=== PATIENT | female | born 1965 | race Caucasian/White ===

== ENCOUNTER → 2019-08-18 | Day surgery (SDC) | payer BC ==
--- NOTE | 2019-08-18 11:55 | RAD REPORT ---
EXAM DESCRIPTION: Ultrasound-guided left breast cyst aspiration CLINICAL HISTORY: Breast mass versus cyst N63.0 COMPARISON: Follow Up Breast Axilla Comp dated 08/10/2019 FINDINGS: Informed consent was obtained and time-out was performed. The patient's left breast was prepped and draped in the usual sterile fashion. 1% lidocaine was used for local anesthetic purposes. Utilizing aseptic technique and ultrasound guidance, an FNA needle was used to access 7 mm hypoechoic left breast lesion in the area of interest. Aspiration was performed yielding 1-2 mL of dark fluid. The cyst was seen the collapse completely. All collected material was sent for cytology. Patient tolerated procedure well. IMPRESSION: Successful ultrasound guided left breast cyst aspiration.
== END ==
LOC: DS 09:44
PROVIDERS: ATTEND Specialist
DX: N63.0 Unspecified lump in unspecified breast (principal)
CPT/HCPCS: 19000; 88161

== ENCOUNTER 2021-08-22 18:53 | Observation (INO) | payer BC ==
[2021-08-22] MEDS ORDERED: NA CHLORIDE 0.9% 1,000 ML ONE (19:53)
[2021-08-22] MEDS ORDERED: ONDANSETRON 4 MG/2 ML VIAL ONE (19:53)
[2021-08-22] MEDS ORDERED: MORPHINE 4 MG/ML SYR ONE ×2 (19:53→23:29)
[2021-08-22 20:38] LABS: Hematocrit 37.1 % (36.0-45.0); Lymphocytes % 16.3 % (15.3-44.8); MPV 7.5 fL (7.6-11.3); RBC Red Blood Cell Count 4.41 M/uL (3.86-4.86)
--- NOTE | 2021-08-22 21:05 | RAD REPORT ---
EXAM DESCRIPTION: US - Abdomen Exam Limited - 08/22/2021 8:43 pm CLINICAL HISTORY: ABD PAIN COMPARISON: No comparisons FINDINGS: No gallstones, sludge or other abnormalities within the gallbladder lumen. There is no wal l thickening or pericholecystic fluid. No common duct stone or biliary tree dilatation identified. IMPRESSION: Normal gallbladder and biliary tree ultrasound.
[2021-08-22 21:16] LABS: SARS-COV-2 RT PCR NEGATIVE (NEGATIVE)
[2021-08-22 21:31] LABS: ALT/SGPT 17 U/L (12-78); AST/SGOT 11 U/L (15-37); Albumin 3.5 g/dL (3.4-5.0); Alkaline Phosphatase 93 U/L (45-117); BUN Blood Urea Nitrogen 12 mg/dL (7-18); Bicarbonate 26 mmol/L (21-32); Bilirubin Direct < 0.1 mg/dL (0-0.2); Bilirubin Total 0.3 mg/dL (0.2-1.0); Glucose Level 111 mg/dL (74-106); Lipase 106 U/L (73-393); Potassium 3.6 mmol/L (3.5-5.1); Sodium Level 138 mmol/L (136-145)
--- NOTE | 2021-08-22 23:22 | ER ---
Nurse's Notes [facility] Name: Elvi Clark Age: 55 yrs Sex: Female : 1965 Arrival Date: 08/22/2021 Time: 18:54 Bed 17 Private MD: Diagnosis: Acute cholecystitis;Vomiting, unspecified Presentation: 08/22 19:33 Chief complaint: Patient states: pt presents with right upper quadrant pain that jh5 started yesterday afternoon, worsens after eating and pt endorses vomiting x5 times today. denies diarrhea. Coronavirus screen: Vaccine status: Patient reports receiving the 2nd dose of the covid vaccine. Client denies travel out of the [place] in the last 14 days. At this time, the client does not indicate any symptoms associated with coronavirus-19. Ebola Screen: Patient negative for fever greater than or equal to 101.5 degrees Fahrenheit, and additional compatible Ebola Virus Disease symptoms Patient denies exposure to infectious person. Patient denies travel to an Ebola-affected area in the 21 days before illness onset. Initial Sepsis Screen: Does the patient meet any 2 criteria? No. Patient's initial sepsis screen is negative. Does the patient have a suspected source of infection? No. Patient's initial sepsis screen is negative. Risk Assessment: Do you want to hurt yourself or someone else? Patient reports no desire to harm self or others. Onset of symptoms was August 21, 2021. 19:33 Method Of Arrival: Ambulatory [facility] 19:33 Acuity: MEENA 3 jh5 Triage Assessment: 19:36 General: Appears uncomfortable, slender, well groomed, well developed, well nourished, [facility] Behavior is calm, cooperative, appropriate for age. Pain: Complains of pain in abdomen. GI: Reports upper abdominal pain, nausea, vomiting. Historical: - Allergies: 19:36 No Known Allergies; 5 - Home Meds: 19:36 Prozac 10 mg oral cap [Active]; Crestor 5 mg oral tab [Active]; Singulair 4 mg Oral jh5 grpk [Active]; - PMHx: 08/23 12:14 Depressive disorder; jl7 - Immunization history:: Adult Immunizations up to date. - Social history:: Smoking status: Patient reports the use of cigarette tobacco products, smokes one-half pack cigarettes per day. - Family history:: not pertinent. - Hospitalizations: : No recent hospitalization is reported. Screenin/08 19:41 Abuse screen: Denies threats or abuse. Nutritional screening: No deficits noted. lg3 Tuberculosis screening: No symptoms or risk factors identified. Fall Risk None identified. Assessment: 19:41 General: Appears in no apparent distress. uncomfortable, Behavior is calm, cooperative. lg3 Pain: Complains of pain in abdomen Pain currently is 10 out of 10 on a pain scale. Neuro: Level of Consciousness is awake, alert, obeys commands, Oriented to person, place, time, situation, Gait is steady. Cardiovascular: Capillary refill < 3 seconds JVD is absent Patient's skin is warm and dry. Respiratory: No deficits noted. Airway is patent Trachea midline Respiratory effort is even, unlabored, Respiratory pattern is regular, symmetrical. GI: No deficits noted. Abdomen is round non-distended, Bowel sounds present X 4 quads. Abd is soft X 4 quads Abdomen is tender to palpation Reports lower abdominal pain, upper abdominal pain, intolerance of fluids, intolerance of food, nausea, vomiting. : No deficits noted. No signs and/or symptoms were reported regarding the genitourinary system. EENT: No deficits noted. No signs and/or symptoms were reported regarding the EENT system. Derm: No deficits noted. No signs and/or symptoms reported regarding the dermatologic system. Skin is intact, is healthy with good turgor, Skin is dry. Musculoskeletal: No deficits noted. No signs and/or symptoms reported regarding the musculoskeletal system. Circulation, motion, and sensation intact. Range of motion: intact in all extremities. 21:16 Reassessment: Patient appears in no apparent distress at this time. No changes from lg3 previously documented assessment. Patient and/or family updated on plan of care and expected duration. Pain level reassessed. Patient is alert, oriented x 3, equal unlabored respirations, skin warm/dry/pink. 08/23 00:55 Reassessment: Patient appears in no apparent distress at this time. No changes from lg3 previously documented assessment. Patient and/or family updated on plan of care and expected duration. Pain level reassessed. Patient is alert, oriented x 3, equal unlabored respirations, skin warm/dry/pink. General: pt quietly resting at this time . 05:48 Reassessment: Patient appears in no apparent distress at this time. No changes from lg3 previously documented assessment. Patient and/or family updated on plan of care and expected duration. Pain level reassessed. General: Appears in no apparent distress. comfortable, Behavior is calm, cooperative, quiet. Pain: Complains of pain in right upper quadrant Pain currently is 3 out of 10 on a pain scale. Neuro: Level of Consciousness is awake, alert, obeys commands, Oriented to person, place, time, situation. Respiratory: No deficits noted. Airway is patent Trachea midline Respiratory effort is even, unlabored, Respiratory pattern is regular, symmetrical. GI: Abdomen is round non-distended, Bowel sounds present X 4 quads. Abd is soft Abdomen is tender to palpation. : No deficits noted. No signs and/or symptoms were reported regarding the genitourinary system. Denies inability to void, urinary frequency, urgency. Musculoskeletal: No deficits noted. No signs and/or symptoms reported regarding the musculoskeletal system. Circulation, motion, and sensation intact. Range of motion: intact in all extremities. Vital Signs: 08/22 19:33 BP 133 / 69; Pulse 82; Resp 18; Temp 98.2; Pulse Ox 100% ; Weight 78.93 kg; Height 5 [facility] ft. 7 in. (170.18 cm); Pain 8/10; 19:41 BP 121 / 66; Pulse 69; Resp 18 S; Pulse Ox 99% on R/A; lg3 21:15 BP 126 / 43; Pulse 72; Resp 17; Pulse Ox 100% on R/A; lg3 08/23 00:53 BP 118 / 62; Pulse 86; Resp 17; Pulse Ox 99% on R/A; lg3 05:48 BP 92 / 48; Pulse 70; Resp 18 S; Pulse Ox 96% on R/A; lg3 06:30 BP 96 / 41; Pulse 72; Resp 18 S; Pulse Ox 100% on R/A; lg3 08/22 19:33 Body Mass Index 27.25 (78.93 kg, 170.18 cm) [facility] ED Course: 08/22 18:54 Patient arrived in ED. am2 19:33 Emerita Martinez, RN is Primary Nurse. lg3 19:36 Triage completed. 5 19:36 Arm band placed on right wrist. 5 19:39 Lewis Roth MD is Attending Physician. rn 19:41 Patient has correct armband on for positive identification. Bed in low position. Call lg3 light in reach. Side rails up X 1. 20:27 COVID-19/FLU A+B (Document "Date of Onset" if Symptomatic) Sent. lg3 20:27 Basic Metabolic Panel Sent. lg3 20:27 CBC with Diff Sent. lg3 20:27 Hepatic Function Sent. lg3 20:27 Lipase Sent. lg3 20:28 Inserted saline lock: 22 gauge in left hand, using aseptic technique. Blood collected. lg3 20:28 Inserted saline lock: 22 gauge in right forearm, using aseptic technique. lg3 20:43 US Abdomen Limited In Process Unspecified. EDMS 21:49 CT Abd/Pelvis - IV Contrast Only In Process Unspecified. EDMS 23:21 Tate Vivar MD is Hospitalizing Provider. rn 08/23 00:55 No provider procedures requiring assistance completed. Patient admitted, IV remains in lg3 place. 07:41 Primary Nurse role handed off by Emerita Martinez, KRISTY bd 07:49 Rashel Sim, KRISTY is Primary Nurse. bp Administered Medications: 08/22 20:26 Drug: NS 0.9% 1000 ml Route: IV; Rate: 1000 ml; Site: left hand; lg3 21:26 Follow up: IV Status: Completed infusion; IV Intake: 1000ml lg3 20:27 Drug: morphine 4 mg Route: IVP; Site: left hand; lg3 20:27 Follow up: Response: No adverse reaction; RASS: Alert and Calm (0) lg3 20:27 Drug: Zofran (Ondansetron) 4 mg Route: IVP; Site: left hand; lg3 20:27 Follow up: Response: No adverse reaction lg3 23:50 Drug: morphine 4 mg Route: IVP; Site: left hand; lg3 23:51 Follow up: Response: No adverse reaction; RASS: Alert and Calm (0) lg3 23:50 Drug: Nicoderm CQ Patch 21 mg/24 hr 1 patches Route: Transdermal; Site: right thigh; lg3 23:51 Drug: Zosyn (piperacillin-tazobactam) 3.375 grams Route: IVPB; Infused Over: 60 mins; lg3 Site: left hand; 23:51 Follow up: Response: No adverse reaction; IV Status: Completed infusion; IV Intake: lg3 100ml 08/23 06:32 Drug: NS 0.9% 1000 ml Route: IV; Rate: 1000 ml; Site: right forearm; lg3 Intake: 08/22 21:26 IV: 1000ml; Total: 1000ml. lg3 23:51 IV: 100ml; Total: 1100ml. lg3 Outcome: 23:21 Decision to Hospitalize by Provider. rn 08/23 00:55 Admitted to Med/surg lg3 Condition: stable Instructed on the need for admit. 12:14 Patient left the ED. jl7 Signatures: Dispatcher [employer] EDMS Bev Davison Roman, MD MD rn Leal, Jahala RN RN jl7 Martita Rachel Brian RN RN Emerita Henry, RN RN lg3 Serene Powers RN RN jh5 Corrections: (The following items were deleted from the chart) 08/22 19:45 19:41 GI: No deficits noted. Abdomen is round non-distended, Bowel sounds present X 4 lg3 quads. Abd is soft X 4 quads Abdomen is tender to palpation Reports lower abdominal pain, upper abdominal pain, vomiting, lg3
--- NOTE | 2021-08-22 23:22 | EDPHYS ---
Physician Documentation [facility] Name: Elvi Clark Age: 55 yrs Sex: Female : 1965 Arrival Date: 08/22/2021 Time: 18:54 Bed 17 Private MD: ED Physician Lewis Roth HPI: 08/22 20:04 This 55 yrs old Female presents to ER via Ambulatory with complaints of Abdominal Pain, rn Nausea/Vomiting. 20:04 The patient presents to the emergency department with nausea, vomiting, abdominal pain, rn of the right upper quadrant, described as stabbing, and radiates to the back. 20:05 Onset: The symptoms/episode began/occurred yesterday. Possible causes: unknown. The rn symptoms are aggravated by pressure, food , The symptoms are alleviated by nothing. Associated signs and symptoms: Pertinent positives: abdominal pain, nausea, vomiting, Pertinent negatives: diarrhea, fever, GI bleeding. Severity of symptoms: At their worst the symptoms were moderate in the emergency department the symptoms are unchanged. The patient has experienced similar episodes in the past. The patient has not recently seen a physician. Pt reports RUQ abd pain that began yesterday, has had similar episodes in past but worse today, started shortly after eating a salad. Also reports chronic acid reflux and takes TUMS frequently. Denies blood in stool. . Historical: - Allergies: 19:36 No Known Allergies; jh5 - Home Meds: 19:36 Prozac 10 mg oral cap [Active]; Crestor 5 mg oral tab [Active]; Singulair 4 mg Oral jh5 grpk [Active]; - PMHx: 08/23 12:14 Depressive disorder; jl7 - Immunization history:: Adult Immunizations up to date. - Social history:: Smoking status: Patient reports the use of cigarette tobacco products, smokes one-half pack cigarettes per day. - Family history:: not pertinent. - Hospitalizations: : No recent hospitalization is reported. ROS: 08/22 20:05 Constitutional: Negative for fever, chills, and weight loss, Eyes: Negative for injury, rn pain, redness, and discharge, Neck: Negative for injury, pain, and swelling, Cardiovascular: Negative for chest pain, palpitations, and edema, Respiratory: Negative for shortness of breath, cough, wheezing, and pleuritic chest pain, Abdomen/GI: + abd pain/nausea/vomiting Back: + right scapular pain : Negative for injury, bleeding, discharge, and swelling, MS/Extremity: Negative for injury and deformity, Skin: Negative for injury, rash, and discoloration, Neuro: Negative for headache, weakness, numbness, tingling, and seizure. Exam: 20:05 Constitutional: This is a well developed, well nourished patient who is awake, alert, rn holding RUQ Head/Face: Normocephalic, atraumatic. Eyes: Pupils equal round and reactive to light, extra-ocular motions intact. Lids and lashes normal. Conjunctiva and sclera are non-icteric and not injected. Cornea within normal limits. Periorbital areas with no swelling, redness, or edema. ENT: dry MM Cardiovascular: Regular rate and rhythm . No pulse deficits. Respiratory: No increased work of breathing, no retractions or nasal flaring. Abdomen/GI: soft, + tender RUQ and epigastric region, + guarding, neg [place] Skin: Warm, dry MS/ Extremity: Pulses equal, no cyanosis Neuro: Awake and alert, GCS 15 Vital Signs: 19:33 BP 133 / 69; Pulse 82; Resp 18; Temp 98.2; Pulse Ox 100% ; Weight 78.93 kg; Height 5 jh5 ft. 7 in. (170.18 cm); Pain 8/10; 19:41 BP 121 / 66; Pulse 69; Resp 18 S; Pulse Ox 99% on R/A; lg3 21:15 BP 126 / 43; Pulse 72; Resp 17; Pulse Ox 100% on R/A; lg3 08/23 00:53 BP 118 / 62; Pulse 86; Resp 17; Pulse Ox 99% on R/A; lg3 05:48 BP 92 / 48; Pulse 70; Resp 18 S; Pulse Ox 96% on R/A; lg3 06:30 BP 96 / 41; Pulse 72; Resp 18 S; Pulse Ox 100% on R/A; lg3 08/22 19:33 Body Mass Index 27.25 (78.93 kg, 170.18 cm) [facility] MDM: 08/22 19:39 Patient medically screened. rn 23:18 Differential diagnosis: Nonspecific abd pain, gastritis, cholecystitis, pancreatitis, rn viral gastroenteritis, gastroenteritis. Data reviewed: vital signs, nurses notes, lab test result(s), radiologic studies, CT scan, ultrasound, and as a result, I will admit patient. Counseling: I had a detailed discussion with the patient and/or guardian regarding: the historical points, exam findings, and any diagnostic results supporting the discharge/admit diagnosis, lab results, radiology results, the need for further work-up and treatment in the hospital. Response to treatment: the patient's symptoms have mildly improved after treatment, and as a result, I will admit patient. 23:19 ED course: Consulted with Dr. Vivar, given normal u/s but then abnormal CT abdomen. rn He recommends admission, NPO, abx, pain meds, and will eval in AM for possible cholecystectomy. Updated patient and still having some pain but better, and happy to stay. . 08/22 19:48 Order name: Basic Metabolic Panel; Complete Time: 21:39 08/22 19:48 Order name: CBC with Diff; Complete Time: 21:39 08/22 19:48 Order name: Hepatic Function; Complete Time: 21:39 08/22 19:48 Order name: Lipase; Complete Time: 21:39 08/22 19:48 Order name: COVID-19/FLU A+B (Document "Date of Onset" if Symptomatic); Complete Time: rn 21:39 08/23 06:15 Order name: CBC with Automated Diff EDCT 08/22 19:48 Order name: US Abdomen Limited; Complete Time: 21:39 08/22 19:48 Order name: CT Abd/Pelvis - IV Contrast Only rn 08/23 06:18 Order name: Basic Metabolic Panel EDCT 08/22 19:48 Order name: IV Saline Lock; Complete Time: 20:27 08/22 19:48 Order name: Labs collected and sent; Complete Time: 20:27 rn 08/22 19:48 Order name: NPO; Complete Time: 20:27 rn Administered Medications: 20:26 Drug: NS 0.9% 1000 ml Route: IV; Rate: 1000 ml; Site: left hand; lg3 21:26 Follow up: IV Status: Completed infusion; IV Intake: 1000ml lg3 20:27 Drug: morphine 4 mg Route: IVP; Site: left hand; lg3 20:27 Follow up: Response: No adverse reaction; RASS: Alert and Calm (0) lg3 20:27 Drug: Zofran (Ondansetron) 4 mg Route: IVP; Site: left hand; lg3 20:27 Follow up: Response: No adverse reaction lg3 23:50 Drug: morphine 4 mg Route: IVP; Site: left hand; lg3 23:51 Follow up: Response: No adverse reaction; RASS: Alert and Calm (0) lg3 23:50 Drug: Nicoderm CQ Patch 21 mg/24 hr 1 patches Route: Transdermal; Site: right thigh; lg3 23:51 Drug: Zosyn (piperacillin-tazobactam) 3.375 grams Route: IVPB; Infused Over: 60 mins; lg3 Site: left hand; 23:51 Follow up: Response: No adverse reaction; IV Status: Completed infusion; IV Intake: lg3 100ml 08/23 06:32 Drug: NS 0.9% 1000 ml Route: IV; Rate: 1000 ml; Site: right forearm; lg3 Disposition Summary: 08/22/21 23:21 Hospitalization Ordered Hospitalization Status: Observation rn Provider: Tate Vivar rn Condition: Stable rn Problem: new rn Symptoms: have improved rn Bed/Room Type: Standard rn Location: [facility] ER HOLD(08/22/21 23:43) cg Room Assignment: ERHOLD-(08/22/21 23:43) cg Diagnosis - Acute cholecystitis rn - Vomiting, unspecified rn Forms: - Medication Reconciliation Form rn - SBAR form rn Signatures: Dispatcher [employer] Lewis Crisostomo MD MD rn Garcia, Cindy RN RN Tomas Felix RN RN jl7 Emerita Martinez RN RN lg3 Serene Powers RN RN jh5 Corrections: (The following items were deleted from the chart) 08/22 23:43 23:21 Telemetry/MedSurg (observation) rn 23:43 23:21 rn
[2021-08-22] MEDS ORDERED: NICOTINE 21 MG/PAT TD ONE (23:28)
[2021-08-22] MEDS ORDERED: NA CHLORIDE 0.9% 100 ML IV ONE (23:29)
[2021-08-22] MEDS ORDERED: PIPERACIL/TAZO 3.375 GM VIAL IV ONE (23:29)
[2021-08-23] MEDS ORDERED: MORPHINE 4 MG/ML SYR IV PRN (00:23)
[2021-08-23] MEDS ORDERED: D5.45NS W/KCL 20MEQ 1,000 ML IV SCH (00:23)
[2021-08-23] MEDS ORDERED: ONDANSETRON 4 MG/2 ML VIAL IV PRN (00:23)
[2021-08-23] MEDS: PIPER TAZO 3.375 GM in NA CHLORIDE 0.9% 100 ML IV SCH ×2 (01:00→09:00)
[2021-08-23] MEDS ORDERED: D5.45NS W/KCL 20MEQ 1,000 ML IV ONE (01:33)
[2021-08-23 05:53] LABS: Absolute Lymphocytes (CBC) 2.5 K/uL (0.7-4.9); Hematocrit 35.5 % (36.0-45.0); Lymphocytes % 25.2 % (15.3-44.8); MPV 7.6 fL (7.6-11.3); RBC Red Blood Cell Count 4.17 M/uL (3.86-4.86)
[2021-08-23 05:54] LABS: Potassium 4.3 mmol/L (3.5-5.1)
[2021-08-23] MEDS ORDERED: NA CHLORIDE 0.9% 1,000 ML ONE (06:29)
[2021-08-23 07:53] VITALS: BMI 27.3
[2021-08-23] MEDS ORDERED: PIPER TAZO 3.375 GM in NA CHLORIDE 0.9% 100 ML IV SCH (08:00)
[2021-08-23] MEDS ORDERED: PIPERACIL/TAZO 3.375 GM VIAL IV ONE (09:16)
[2021-08-23] MEDS ORDERED: NA CHLORIDE 0.9% 100 ML IV ONE (09:16)
[2021-08-23] MEDS ORDERED: ACETAMINOPHEN 325 MG TABLET ONE (09:16)
[2021-08-23] MEDS ORDERED: INFLUENZA VACCINE (for 6+ mo) 0.5 ML DOSE IMVAC ONE (11:00)
--- NOTE | 2021-08-23 11:02 | RAD REPORT ---
EXAM DESCRIPTION: CT - Abdomen Pelvis W Contrast - 08/23/2021 6:30 am COMPARISON: None CLINICAL HISTORY: Abdominal pain, nausea vomiting TECHNIQUE: Multiple helical axial images were obtained through the abdomen and pelvis using intraven ous contrast. Coronal and sagittal reformatted images were obtained. All CT scans at this facility use dose modulation, iterative reconstruction, and/or weight-based dosi ng when appropriate to reduce radiation dose to as low as reasonably achievable. FINDINGS: Lung bases: There is a small hiatal hernia. Liver: Homogenous attenuation is noted. Gallbladder/biliary: Possible trace pericholecystic fluid. Common bile duct is dilated measuring up t o 1 cm in width. Pancreas: Unremarkable. No evidence of ductal enlargement. Spleen: Appears unremarkable. No splenomegaly. Adrenals: There is an indeterminate 1 cm left adrenal nodule. Kidneys and ureters: No evidence of hydronephrosis. Normal enhancement. Bladder: Unremarkable. Pelvic organs: Post hysterectomy changes are present. Bowel: No evidence of bowel obstruction. No bowel wall thickening. Appendix appears unremarkable. Vasculature: Aortoiliac atherosclerosis is present. Peritoneum: No free air. No significant free fluid. Lymph nodes: Unremarkable. Soft tissues: Unremarkable. Bones: Unremarkable. IMPRESSION: 1. Dilatation of the common bile duct which can be seen with a distal biliary obstruct martin process. Consider ultrasound follow-up. MRCP can be obtained if ultrasound is inconclusive. 2. Possible trace pericholecystic fluid. Ultrasound can be utilized to evaluate for underlying chol ecystitis as appropriate. 3. Indeterminate 1 cm left adrenal nodule. Adrenal protocol CT or MRI recommended for follow-up. Electronically signed by: Fletcher Parrish MD 08/22/2021 10:59 PM WOMEN'S STUDIES PROFESSOR Due to temporary technical issues with the PACS/Fluency reporting system, reports are being signed by the in house radiologist without review as a courtesy to ensure prompt reporting. The interpreting r adiologist is fully responsible for the content of the report.
--- NOTE | 2021-08-23 12:08 | P.HP ---
Date of Service: 08/23/21 PC: This 55-year-old female presented to the emergency room with severe right upper quadrant abdominal pain for diagnosis and treatment. HPC: Patient has been having intermittent bouts of right upper quadrant abdominal pain after she eats so for the last few months. Yesterday however the pain was more severe radiated into her back and she could no longer stand it. PSHx: Negative PMHx: Negative Social Hx: No known allergies, smokes a pack of cigarettes a day Sys R: No cough, wheeze, shortness of breath. No chest pain or palpitations. No urinary complaints O/E: Awake alert vital signs are stable HEENT: Within normal limits, nonicteric Chest: Air entry equal bilaterally Abd: Tender in the right upper quadrant [place]: Intact Data: Elevated white cell count, CT scan demonstrates some thickening of the gallbladder wall and possible sludge on ultrasound. [Patient also has a 1 cm area on the adrenal gland. Discussed with the radiologist on the patient. She will need a CT scan follow-up in 6 months. The patient and her have been informed of this.] Impression: Acute cholecystitis Plan: I will taken the operating room for laparoscopic possible open cholecystectomy with a cholangiogram. The risks of this procedure have been discussed. The possibility of bleeding, infection, injury to bile ducts blood vessels and intestines has been described. The possible need for open and/or further surgeries or procedures was discussed. She understands and wants us to proceed.
[2021-08-23] MEDS ORDERED: ROCURONIUM 50 MG/5 ML VIAL IV ONE (12:22)
[2021-08-23] MEDS ORDERED: FENTANYL CITR 100 MCG/2 ML ONE (12:22)
[2021-08-23] MEDS ORDERED: LIDOCAINE 1% MPF 5 ML VIAL ONE (12:22)
[2021-08-23] MEDS ORDERED: propofoL 200 MG/20 ML VIAL IV ONE (12:22)
[2021-08-23] MEDS ORDERED: Ringers Lactate 1,000 ML IV ONE (12:28)
[2021-08-23] MEDS ORDERED: KETOROLAC 30 MG/ML INJ ONE (12:29)
[2021-08-23] MEDS ORDERED: MIDAZOLAM HCL 2 MG/2 ML INJ ONE (12:29)
[2021-08-23] MEDS ORDERED: dexAMETHasone 10 MG/ML VIAL ONE (12:29)
[2021-08-23] MEDS ORDERED: ONDANSETRON 4 MG/2 ML VIAL ONE ×2 (12:30→14:44)
[2021-08-23] MEDS ORDERED: GLYCOPYRROLATE 0.2 MG/ML SYR ONE ×2 (13:29→13:55)
[2021-08-23] MEDS ORDERED: NEOSTIGMINE 1 MG/ML -5 ML ONE (13:55)
[2021-08-23] MEDS ORDERED: ALBUTEROL INHALER 60 PUFF/8 GM IH ONE (13:59)
--- NOTE | 2021-08-23 14:00 | P.OP ---
Preoperative diagnosis: Acute on chronic cholecystitis with cholelithiasis Postoperative diagnosis: The same Primary procedure: Laparoscopic cholecystectomy Secondary procedure: Cholangiogram Other procedure(s): Tap block Anesthesia: General Estimated blood loss: Less than 10 Specimen: 1 gallbladder and contents Operative Technique: The patient brought the operating room and placed supine on the table. After the induction of adequate general endotracheal anesthesia, the area of the abdomen was prepped with a DuraPrep solution, and she was draped in usual aseptic manner A subumbilical incision was made. This was brought down through the skin and subcutaneous tissue. The Visiport was now used to enter the peritoneal cavity and created pneumoperitoneum to approximately 12 mmHg. Under direct vision a 5 mm trocar was placed in the upper midline, and 2 other 5 mm trochars on the right lateral side of the abdomen. The patient was then placed in reverse Trendelenburg. The table was turned towards the left. We can now visualize the right upper quadrant. We could see an acutely inflamed distended gallbladder. It was necessary to aspirate his contents we could place a grasper on the fundus. This having been done the gallbladder was elevated. Omental adhesions were seen on the body of the gallbladder down past the Brown's pouch. These omental adhesions were gently taken off using blunt and sharp dissection as well as judicious electrocautery. The cystic duct was identified. It was noted to have a marked taper to it and come down to quite a narrow structure. Clips were placed on the distal portion of the gallbladder at the junction with the cystic duct. An opening was made into the cystic duct through which we obtained a cho langiogram. The cholangiogram demonstrated good flow of contrast into the duodenum, there was some dilatation of the distal end of the common bile duct but no filling defect was noted. The cystic duct is quite small and has a low entry onto the common duct. However no filling defects were noted. At this point the catheter was removed. Clips were placed on the distal portion of the cystic duct which which was transected. The gallbladder was now dissected free from the liver bed, placed into an Endo Catch, and brought out through the umbilical trocar site. Attention was turned back up towards the right upper quadrant. The area was aspirated above the irrigating fluid. It was carefully inspected to ensure adequate hemostasis. This having been done the Endo Close was used to approximate the umbilical fascial defect. The suture was tied, the anterior abdominal wall was now Amaya T [place] blocked with 0.25% Marcaine. The pneumoperitoneum was now collapsed, the trochars removed, and marky applied to the skin. At the end of the procedure she she was in a stable condition when sent to the recovery room. Needle sponge instrument count was correct. No drains were placed. Quinton had been applied to the skin. Estimated blood loss, less than 10 cc. Complications: None Transferred to: Recovery Room Condition: Good
[2021-08-23] MEDS ORDERED: PROMETHAZINE INJ 25 MG/ML AMP ONE (14:29)
[2021-08-23] MEDS ORDERED: MEPERIDINE HCL 25 MG/ML SYR ONE (14:30)
[2021-08-23] MEDS ORDERED: HYDROMORPHONE HCL 1 MG/ML INJ ONE (14:38)
[2021-08-23] MEDS ORDERED: HYDROCODONE/APAP 7.5/325 MG TAB PO ONE (15:11)
[2021-08-23] MEDS ORDERED: HYDROCODONE/APAP 7.5/325 MG TAB ONE (15:30)
[2021-08-23 15:34] VITALS: TEMP 98.1
[2021-08-23 16:28] VITALS: O2SAT 99
[2021-08-23 16:29] VITALS: BP 99/55
--- NOTE | 2021-08-23 18:23 | RAD REPORT ---
EXAM DESCRIPTION: RAD - Cholangiogram Oper-Xray Or - 08/23/2021 2:31 pm CLINICAL HISTORY: LAP NEFTALI WITH IOC COMPARISON: Abdomen Pelvis W Contrast dated 08/22/2021 FINDINGS/IMPRESSION: Cholangiogram performed during laparoscopic cholecystectomy. No filling defects within the common bile duct. The common bile duct is dilated. Mild intrahepatic biliary ductal dilat ation. Total fluoro time: 0.1 minutes Dose: 4.41 mGy
== END 2021-08-23 16:25 | disposition home or self-care (01) ==
LOC: ER 18:53 → ERHOLD 23:23
PROVIDERS: ADMIT Surgery; ATTEND Surgery
PROC: BF00YZZ Plain Radiography of Bile Ducts using Other Contrast (ICD-10-PCS; 2021-08-23)
PROC: 0FT44ZZ Resection of Gallbladder, Percutaneous Endoscopic Approach (ICD-10-PCS; principal; 2021-08-23 12:00)
DX: K80.12 Calculus of gallbladder with acute and chronic cholecystitis without obstruction (principal); R93.89 Abnormal findings on diagnostic imaging of other specified body structures; K21.9 Gastro-esophageal reflux disease without esophagitis; J45.909 Unspecified asthma, uncomplicated; F32.A Depression, unspecified; F17.210 Nicotine dependence, cigarettes, uncomplicated; Z20.822 Contact with and (suspected) exposure to COVID-19
CPT/HCPCS: 47563; 85025 ×2; 80048 ×2; 36415; 80076; 88304; 83690; 0240U; 74177; 74300; 76705; Q9967; J2704; J2550; J2543 ×2; J2250; J3010; J1100; J2175; J1170; J2710; J7120; J7030 ×2; J2405 ×3; 96361; 96374; 96375; 99285; G0378